=== PATIENT | female | born 1965 | race Caucasian/White ===

== ENCOUNTER → 2022-11-11 11:01 | Outpatient (CLI) | payer BC, SELFPAY | PROVIDERS: Visit Provider Nurse Practitioner Family | DX: B35.1 Tinea unguium (principal) | CPT/HCPCS: 87220 ==

== ENCOUNTER → 2022-11-11 13:19 | Outpatient (CLI) | payer BC, SELFPAY ==
--- NOTE | 2022-11-11 13:27 | XR_ITS ---
FINAL REPORT CLINICAL HISTORY: Right foot pain COMPARISON: none FINDINGS: RIGHT FOOT: Three views of the right foot were obtained. There is no acute fracture or dislocation. The joint spaces are intact. There is no soft tissue abnormality. IMPRESSION: No acute bony abnormality. Reviewed, Interpreted and Dictated by Alvarez Parker III, MD Transcribed by Delilah Maya Authenticated and [facility]
--- NOTE | 2022-11-11 13:27 | XR_ITS ---
FINAL REPORT CLINICAL HISTORY: Left foot pain COMPARISON: None FINDINGS: LEFT FOOT: Three views of the left foot were obtained. There is no acute fracture or dislocation. The joint spaces are intact. There is no soft tissue abnormality. IMPRESSION: No acute bony abnormality. Reviewed, Interpreted and Dictated by Alvarez Parker III, MD Transcribed by Delilah Maya Authenticated and [facility]
== END ==
PROVIDERS: PCP Family Medicine; Visit Provider Nurse Practitioner Family
DX: M79.671 Pain in right foot (principal); M79.672 Pain in left foot
CPT/HCPCS: 73630